=== PATIENT | female | born 1965 | race Caucasian/White ===

== ENCOUNTER 2024-01-21 22:11 | Emergency (ER) | payer OTHER, SELFPAY ==
[2024-01-21 22:13] VITALS: BP 152/105
[2024-01-21 22:30] VITALS: BMI 28.7
--- NOTE | 2024-01-21 22:57 | ED.GENMED ---
History of Present Illness
<RAZIA Nielsen - Last Filed: 01/22/24 04:14>
General
Chief Complaint: Headache
Source: patient
Exam Limitations: none
Time Seen by Provider: 01/21/24 22:40
Nursing documentation reviewed up to this point in time: agreed with
History of Present Illness
History of Present Illness:
Patient is a 58yo F w/ no hx of migraines who presents to ED for HODGES x6days. Reports HODGES started 01/15 after going for a drive in [place]. Noticed sun was bothering eyes and then HODGES started. Pain started in L faith. Pt describes constant dull pain
w/ short episodes shooting 10/10 pain. Since yesterday pain has radiated to L back of head. Describes the pain as pulsating. She denies ever having headaches before and describes this as worse HODGES of her life. Pain is worse w/ reading and coughing.
Denies photophobia, phonophobia, and N/V/D/C. She admits to low appetite and has lost 3 lbs this week. She saw PCP yesterday, blood work done, started on prednisone. States that PCP was concerned for giant cell arteritis, called her today, and told
her to stop prednisone.
Past History
<RAZIA Nielsen - Last Filed: 01/22/24 04:14>
Past History
ED Past Medical History: Other (Thyroiditis)
ED Past Surgical History: and Orthopedic
Social History
Tobacco: Non-smoker
Alcohol: Occasional
Drug: None
Personal:
Living: with family
Employment: Employed
Review of Systems
<RAZIA Nielsen - Last Filed: 01/22/24 04:14>
Review of Systems
Constitutional: Denies fever, fatigue or chills
EENT: Denies sore throat or runny nose
Respiratory: Reports cough; Denies trouble breathing
Cardiac: Denies chest pain or palpitations
ABD/GI: Denies abdominal pain, nausea, vomiting, diarrhea or constipated
: Denies dysuria
Neurological: Reports headache; Denies dizzy
Phy Exam
<Angelina Johnson [facility] Filed: 01/22/24 04:14>
General Physical Exam
General Presentation: moderate distress
General age: appears stated age
General Skin: warm and dry
General Habitus: normal
General Mental: tearful
Eye Exam
Eye Exam: PERRL
Cardiovascular Exam
Cardiovascular Exam: regular rate/rhythm, no edema, no gallop and no murmur
Pulmonary Exam
Pulmonary Exam: lungs clear, no respiratory distress, no rales, no crackles, no rhonchi and no wheezing
Neurological Exam
Neurological Exam: alert, oriented x3, no motor deficits, no sensory deficits, speech normal and normal gait
Course
<Angelina Johnson [facility] Filed: 01/22/24 04:14>
Orders/Labs/Results
Orders:
Orders
01/21/24 23:04
CT Head Angio W/wo Iv Contrast Urgent
Comment:
Reason For Exam: headache
01/21/24 23:16
Complete Blood Count/With Diff Urgent
Comprehensive Metabolic Panel Urgent
Sedimentation Rate [Erythrocyte Sed Rate] Urgent
01/21/24 23:26
Dexamethasone Sod Phosphate [Decadron] 10 mg IV NOW STA
Ketorolac [Toradol] 30 mg IV NOW STA
Metoclopramide [Reglan] 10 mg IV NOW STA
01/22/24 01:00
0.9% Sodium Chloride 1000 ml [Nss] 1,000 ml IV BOLUS
Abnormal Lab Results
01/21/24
23:16
WBC 14.5 H 10^3/uL
(4.8-10.8)
Abs Immat Gran (auto) 0.1 H 10^3/uL
(0-0.05)
Absolute Neuts (auto) 10.7 H 10^3/uL
(1.4-6.5)
Absolute Monos (auto) 0.9 H 10^3/uL
(0.1-0.6)
Lymphocytes % 19.5 L %
(20.5-51.1)
BUN 24 H mg/dl
(7-17)
Glucose 127 H mg/dl
(70-99)
01/21/24 23:16
01/21/24 23:16
Vital Signs
Initial and Last Documented VS:
Initial Vital Signs
Temp Pulse Resp BP Pulse Ox
98.2 F 99 16 152/105 100
01/21/24 22:13 01/21/24 22:13 01/21/24 22:13 01/21/24 22:13 01/21/24 22:13
Last Documented Vital Signs
Temp Pulse Resp BP Pulse Ox
98.2 F 88 20 126/78 99
01/21/24 22:13 01/22/24 03:50 01/22/24 03:50 01/22/24 03:50 01/22/24 03:50
<Filipe Howell, DO - Last Filed: 01/22/24 03:46>
Orders/Labs/Results
Orders:
Orders
01/21/24 23:04
CT Head Angio W/wo Iv Contrast Urgent
Comment:
Reason For Exam: headache
01/21/24 23:16
Complete Blood Count/With Diff Urgent
Comprehensive Metabolic Panel Urgent
Sedimentation Rate [Erythrocyte Sed Rate] Urgent
01/21/24 23:26
Dexamethasone Sod Phosphate [Decadron] 10 mg IV NOW STA
Ketorolac [Toradol] 30 mg IV NOW STA
Metoclopramide [Reglan] 10 mg IV NOW STA
01/22/24 01:00
0.9% Sodium Chloride 1000 ml [Nss] 1,000 ml IV BOLUS
Abnormal Lab Results
01/21/24
23:16
WBC 14.5 H 10^3/uL
(4.8-10.8)
Abs Immat Gran (auto) 0.1 H 10^3/uL
(0-0.05)
Absolute Neuts (auto) 10.7 H 10^3/uL
(1.4-6.5)
Absolute Monos (auto) 0.9 H 10^3/uL
(0.1-0.6)
Lymphocytes % 19.5 L %
(20.5-51.1)
BUN 24 H mg/dl
(7-17)
Glucose 127 H mg/dl
(70-99)
01/21/24 23:16
01/21/24 23:16
Vital Signs
Initial and Last Documented VS:
Initial Vital Signs
Temp Pulse Resp BP Pulse Ox
98.2 F 99 16 152/105 100
01/21/24 22:13 01/21/24 22:13 01/21/24 22:13 01/21/24 22:13 01/21/24 22:13
Last Documented Vital Signs
Temp Pulse Resp BP Pulse Ox
98.2 F 88 20 126/78 99
01/21/24 22:13 01/22/24 03:50 01/22/24 03:50 01/22/24 03:50 01/22/24 03:50
<RAZIA Nielsen - Last Filed: 01/22/24 04:14>
*Critical Care Note
Total Time (30-74mins, 75-104mins- exclusive of procedures): Not Applicable
<Filipe Howell DO - Last Filed: 01/22/24 03:46>
Update Note
Update Note:
Comparison March 27, 2016
CT head without contrast
CTA head with IV contrast
IMPRESSION:
Non-contrast Head:
No acute intracranial abnormality. No acute territorial infarct, hemorrhage, mass effect, or midline shift.
CTA Head:
[place] is patent without aneurysm, stenosis, or occlusion.
01/22/2024 0102 AM: Discussed CT scan with patient. Compared lab work to previous lab work drawn at an outside hospital. Elevated white blood cell count likely from the steroids. Patient to receive fluids.
01/22/2024 0134 AM: Back in to see the patient. She is resting comfortably.
01/22/2024 0230 AM: Patient states that headache has completely resolved
01/22/2024 0345 AM: Patient resting comfortably, no acute distress. Wishes to be discharged.
ED Attending Note
<RAZIA Nielsen - Last Filed: 01/22/24 04:14>
-
Portions of this chart may have been created with voice recognition software.� Occasional wrong word or��sound alike� substitutions may have occurred due to the inherent limitations of voice recognition software.
<Filipe Howell DO - Last Filed: 01/22/24 03:46>
ED Attending Note
Patient seen and examined by attending physician: Yes
I performed the substantive portion of visit, reviewed & personally made and approve the management plan that is documented in note by myself or HUONG.: Yes
ED Attending Note:
This a pleasant 58-year-old female who presents to the emergency department with 6 days of headache. She states that the headache began 6 days ago while out in intense sunlight. She states that the pain started in her left faith and radiates to
the rear left scalp. Patient states that headache is mostly resolved with Tylenol but she is concerned because it keeps returning. Was seen by her primary care provider yesterday and had blood work to rule out giant cell arteritis. She was
started on steroids but then told to stop when the blood work came back normal. Denies fever, chills, nausea, vomiting, neck pain, chest pain, or shortness of breath. Patient was seen in conjunction with the PA student. I have reviewed and agree
with the history and treatment plan presented. On my independent physical exam, patient is awake, alert, and oriented x3, minimal acute distress. No respiratory distress. Pupils equal round reactive to light and accommodation. Speech is clear
and appropriate.
Discharge Plan
Departure
Patient Disposition: Home (Routine Discharge)
Date of Disposition: 01/22/24
Time of Disposition: 03:45
Patient with high blood pressure during this ER visit?: Yes
Condition: Good
Discharge Problem:
Headache, migraine
Instructions: Migraines (DC), Headache, Adult (DC), BLOOD PRESSURE
Prescriptions:
No Action
cyclobenzaprine 10 MG tablet
10 mg PO TIDPRN PRN (Reason: pain) Qty: 20 0RF
Referrals:
Eugenie Riojas MD [Family Provider] -
Bello Meza MD [Active] - Next open appointment
Activity Restrictions/Additional Instructions:
It was a pleasure meeting you and taking part in your care. We hope for your continued healing and wellness.
Please read discharge instructions in their entirety. However, they are for general education and may not describe your exact diagnosis at discharge. Information on your ER visit and medical conditions were discussed with you along with appropriate
follow up information...
If indicated, please take your medications as instructed and indicated on discharge paperwork.
Please schedule a follow up appointment as directed. Call to schedule an appointment
Please return to the emergency department with ANY change in, persisting, or worsening of symptoms. If any of your symptoms do not improve, or persist, or become more severe within 6-12 hours, please return to the emergency department for further
care.
Please return to the emergency department if you develop a headache, neck pain/stiffness, fever greater than 100.4F, chest pain, shortness of breath, persistent nausea, vomiting, slurred speech, difficulty walking, numbness/tingling, weakness, signs
of infection or any other symptoms that are worrisome to you.
If you have any questions or concerns please do not hesitate to call the Hospital at or E-mail me directly at [email or web address]
Interventions
Interventions:
*Risk Screen - Suicide Last Done: 01/21/24 22:12
*General Assessment Last Done: 01/21/24 22:30
*Neglect/Abuse Screening Last Done: 01/21/24 22:13
ED- Fall Risk Assessment Last Done: 01/21/24 22:30
*ED COVID-19 Vaccine History Last Done: 01/21/24 22:30
*Nursing Disposition Last Done: 01/22/24 03:50
ED- Neurological Assessment Last Done: 01/21/24 22:30
Discharge Date and Time
Discharge Date/Time: 01/22/24 04:00
Print Language: ARABIC
[2024-01-21 23:31] LABS: % Basophils 0.2 % (0-2); % Eosinophils 0.1 % (0-6); % Immature Granulocytes 0.3 % (0-0.5); % Lymphocytes 19.5 % (20.5-51.1); % Monocytes 6.4 % (1.7-9.3); % Neutrophils 73.5 % (42.2-75.2); Absolute Immature Granulocytes 0.1 10^3/uL (0-0.05); Absolute Lymphocytes 2.8 10^3/uL (1.2-3.4); Absolute Monocytes 0.9 10^3/uL (0.1-0.6); Absolute Neutrophils 10.7 10^3/uL (1.4-6.5); Hematocrit 40.6 % (37.0-47.0); Hemoglobin 13.7 g/dL (12.0-16.0); Mean Corp Hgb Conc. 33.7 g/dL (33.0-37.0); Mean Corpuscular Hgb 29.8 pg (27.0-31.0); Mean Corpuscular Volume 88.3 fL (81.0-99.0); Mean Platelet Volume 9.4 fL (7.4-10.4); Nucleated Red Blood Cells % 0 %; Platelet Count 316 10^3/uL (130-400); Red Cell Dist. Width 13.2 % (11.5-14.5); White Blood Cell Count 14.5 10^3/uL (4.8-10.8)
[2024-01-21] MEDS: DECADRON 10 MG IV (23:33)
[2024-01-21] MEDS: TORADOL 30 MG IV (23:33)
[2024-01-21] MEDS: REGLAN 10 MG IV (23:35)
[2024-01-21 23:43] LABS: Erythrocyte Sed Rate 7 mm/hour (0-20)
[2024-01-21 23:46] LABS: ALT (SGPT) 26 U/L (0-35); AST (SGOT) 26 U/L (14-36); Alkaline Phosphatase 78 U/L (38-126); Blood Urea Nitrogen 24 mg/dl (7-17); Calcium 10.2 mg/dl (8.4-10.2); Carbon Dioxide 25 mmol/L (22-30); Chloride 100 mmol/L (98-107); Estimated Creatinine Clearance 95 ml/min; Glucose 127 mg/dl (70-99); Potassium 4.5 mmol/L (3.5-5.1); Sodium 140 mmol/L (135-145); Total Bilirubin 0.2 mg/dl (0.2-1.3); Total Protein 7.7 g/dl (6.3-8.2); eGFR > 60.00
[2024-01-22] MEDS: NSS 1000 IV (01:20)
[2024-01-22 01:23] VITALS: BP 130/72
[2024-01-22 03:50] VITALS: BP 126/78
== END 2024-01-22 04:00 | disposition home or self-care (01) ==
LOC: EMR 22:11
PROVIDERS: EMERGENCY PHYSICIAN Student in an Organized Health Care Education/Training Program; FAMILY PHYSICIAN Emergency Medicine
DX: G43.909 Migraine, unspecified, not intractable, without status migrainosus (principal)
CPT/HCPCS: 96374; 96375; 96361; 99284; 70496; 80053; 85025; 85652; Q9967

== ENCOUNTER → 2024-02-22 14:38 | Outpatient (REF) | payer OTHER, SELFPAY | LOC: MRI 3T 14:38 | PROVIDERS: ATTENDING PHYSICIAN Emergency Medicine | DX: R51.9 Headache, unspecified (principal) | CPT/HCPCS: 70553; A9575 ==

== ENCOUNTER → 2024-05-11 12:56 | Outpatient (REF) | payer OTHER, SELFPAY | LOC: HWRAD 12:56 | PROVIDERS: ATTENDING PHYSICIAN Otolaryngology; FAMILY PHYSICIAN Emergency Medicine | DX: J32.4 Chronic pansinusitis (principal) | CPT/HCPCS: 70486 ==

== ENCOUNTER → 2024-06-22 07:02 | Outpatient (REF) | payer OTHER, SELFPAY | LOC: RCS 07:02 | PROVIDERS: ATTENDING PHYSICIAN Internal Medicine Cardiovascular Disease; FAMILY PHYSICIAN Emergency Medicine | DX: I10 Essential (primary) hypertension (principal) | CPT/HCPCS: 93306 ==

== ENCOUNTER → 2024-06-24 09:34 | Outpatient (REF) | payer OTHER, SELFPAY | LOC: RCS 09:34 | PROVIDERS: ATTENDING PHYSICIAN Internal Medicine Cardiovascular Disease; FAMILY PHYSICIAN Emergency Medicine | DX: I10 Essential (primary) hypertension (principal) | CPT/HCPCS: 93017 ==

== ENCOUNTER → 2024-06-27 07:41 | Outpatient (REF) | payer OTHER, SELFPAY | LOC: PAVMRI 07:41 | PROVIDERS: ATTENDING PHYSICIAN Internal Medicine; FAMILY PHYSICIAN Emergency Medicine | DX: K90.9 Intestinal malabsorption, unspecified (principal); Z80.9 Family history of malignant neoplasm, unspecified | CPT/HCPCS: 74183; A9575 ==

== ENCOUNTER → 2024-06-29 14:07 | Outpatient (REF) | payer OTHER, SELFPAY | LOC: RCS 14:07 | PROVIDERS: ATTENDING PHYSICIAN Internal Medicine Cardiovascular Disease; FAMILY PHYSICIAN Emergency Medicine | DX: I10 Essential (primary) hypertension (principal) | CPT/HCPCS: 93017; 93350 ==

== ENCOUNTER → 2024-07-02 09:55 | Outpatient (REF) | payer OTHER, SELFPAY | LOC: MRI 3T 09:55 | PROVIDERS: ATTENDING PHYSICIAN Student in an Organized Health Care Education/Training Program; FAMILY PHYSICIAN Emergency Medicine | DX: G95.9 Disease of spinal cord, unspecified (principal) | CPT/HCPCS: 72141 ==

== ENCOUNTER → 2024-07-13 14:47 | Outpatient (REF) | payer OTHER, SELFPAY | LOC: HWRAD 14:47 | PROVIDERS: ATTENDING PHYSICIAN Emergency Medicine | DX: E07.9 Disorder of thyroid, unspecified (principal) | CPT/HCPCS: 76536 ==

== ENCOUNTER → 2024-09-28 17:16 | Outpatient (REF) | payer OTHER, SELFPAY | LOC: CLAB 17:16 | PROVIDERS: ATTENDING PHYSICIAN Otolaryngology | DX: J34.2 Deviated nasal septum (principal); J32.4 Chronic pansinusitis | CPT/HCPCS: 88304; 88311 ==

== ENCOUNTER → 2024-11-11 07:27 | Outpatient (REF) | payer OTHER, SELFPAY | LOC: RAD 07:27 | PROVIDERS: ATTENDING PHYSICIAN Nurse Practitioner; FAMILY PHYSICIAN Emergency Medicine | DX: Z87.440 Personal history of urinary (tract) infections (principal) | CPT/HCPCS: 76770 ==

== ENCOUNTER → 2025-01-02 08:02 | Outpatient (REF) | payer SELFPAY | LOC: HWRAD 08:02 | PROVIDERS: ATTENDING PHYSICIAN Internal Medicine Cardiovascular Disease; FAMILY PHYSICIAN Family Medicine | DX: E78.5 Hyperlipidemia, unspecified (principal) | CPT/HCPCS: 75571 ==

== ENCOUNTER → 2025-01-18 15:21 | Outpatient (REF) | payer OTHER, SELFPAY | LOC: RAD 15:21 | PROVIDERS: ATTENDING PHYSICIAN Internal Medicine; FAMILY PHYSICIAN Family Medicine | DX: R06.02 Shortness of breath (principal) | CPT/HCPCS: 71046 ==

== ENCOUNTER → 2025-02-08 12:13 | Outpatient (REF) | payer OTHER, SELFPAY | LOC: DHSLP 12:13 | PROVIDERS: ATTENDING PHYSICIAN Internal Medicine Critical Care Medicine; FAMILY PHYSICIAN Family Medicine | DX: G47.30 Sleep apnea, unspecified (principal); R06.83 Snoring | CPT/HCPCS: 95800 ==